=== PATIENT | male | born 1970 | race Caucasian/White ===

== ENCOUNTER 2024-11-14 16:48 | Emergency (ER) | payer OTHER ==
[~2024-11-14] VITALS: Ht 190.5 cm; Wt 127.0 kg
[2024-11-14] MEDS ORDERED: TIZANIDINE HCL2 MG PO (17:01)
[2024-11-14] MEDS ORDERED: TRAMADOL HYDROC50 M1 PO (17:01)
[2024-11-14] MEDS ORDERED: IBUPROFEN600 MG PO (17:02)
[2024-11-14 17:07] VITALS: BP 177/104
[2024-11-14] MEDS ORDERED: KETOROLAC TROMETHAMINE 30 MG/ML SDV IM ONE (17:15)
[2024-11-14 17:16] VITALS: BP 169/98
[2024-11-14] MEDS ORDERED: LIDOCAINE21 MT ×2 (17:21→18:06)
[2024-11-14] MEDS ORDERED: AMOX/K CLAV875 M1 PO ×2 (17:21→18:06)
[2024-11-14] MEDS ORDERED: LORTAB 5/3255 MG PO ×2 (17:21→18:06)
[2024-11-14 17:26] VITALS: BP 177/104
== END 2024-11-14 17:28 | disposition home or self-care (01) | DRG 159 ==
LOC: ED 16:48
DX: K04.7 Periapical abscess without sinus (principal); K02.9 Dental caries, unspecified; S02.5XXA Fracture of tooth (traumatic), initial encounter for closed fracture; X58.XXXA Exposure to other specified factors, initial encounter

== ENCOUNTER 2024-12-03 09:40 | Emergency (ER) | payer OTHER ==
[~2024-12-03] VITALS: Ht 190.5 cm; Wt 122.0 kg
[~2024-12-03 09:40] MED LIST: AMOX/K CLAV875 M1 PO; IBUPROFEN600 MG PO; LIDOCAINE21 MT; LORTAB 5/3255 MG PO; TIZANIDINE HCL2 MG PO; TRAMADOL HYDROC50 M1 PO
[2024-12-03 10:00] VITALS: BP 115/71
[2024-12-03 10:17] LABS: BASO% 0.3 % (0-3); EOS% 0.2 % (0-8); HEMATOCRIT 45.9 % (39.0-50.0); HEMOGLOBIN 15.8 g/dl (14.0-18.0); IMMATURE GRANULOCYTES 0.3 % (0.0-5.0); LYMPH% 8.9 % (15-41); MEAN CELL VOLUME 85.5 fL CALC (80.0-100.0); MEAN CORPUSCULAR HGB 29.4 pG CALC (26.0-32.0); MEAN CORPUSCULAR HGB CONC 34.4 g/dL CAL (32.0-36.0); MONO% 10.8 % (2-13); NEUT# 15.07 thou/uL (1.82-7.42); NEUT% 79.5 % (42-76); RED BLOOD COUNT 5.37 mill/uL (4.70-6.10); RED CELL DISTRI WIDTH 11.8 % (11.5-15.5)
[2024-12-03] MEDS ORDERED: PIPERACILLIN Sodium-Tazobactam 3.375 GM in SODIUM CHLORIDE 0.9% 100 ML IV ONE (10:30)
[2024-12-03 10:32] LABS: ALBUMIN 3.9 g/dL (3.2-5.0); ALKALINE PHOSPHATASE 102 u/l (38-126); ANION GAP 18 (6-22 (CALC)); BILIRUBIN, TOTAL 2.1 mg/dL (0.2-1.3); BUN 14 mg/dL (9-20); BUN/CREATININE RATIO 16 (12-20 (CALC)); CARBON DIOXIDE 20 mmol/l (22-30); CHLORIDE 102 mmol/l (95-108); CREATININE 0.8 mg/dL (0.7-1.3); ESTIMATED GFR 106 ML/MIN (>=90 (CALC)); LIPASE 161 u/l (23-300); POTASSIUM 3.9 mmol/l (3.5-5.1); SGOT/AST 41 u/l (17-59); SODIUM 135 mmol/l (137-146); TOTAL PROTEIN 6.8 g/dL (6.3-8.2)
[2024-12-03 10:33] LABS: URINE BLOOD DIPSTICK Negative (NEGATIVE); URINE GLUCOSE - DIPSTICK Negative (NEGATIVE); URINE KETONE 15 mg/dL (NEGATIVE); URINE LEUK ESTERASE Negative (NEGATIVE); URINE NITRITE - DIPSTICK Negative (Negative); URINE PH 5.5 (4.5-8.0); URINE PROTEIN - DIPSTICK 100 mg/dL (NEG-TRACE); URINE SPECIFIC GRAVITY 1.025
[2024-12-03 10:38] LABS: URINE COLOR Dark yellow
[2024-12-03 10:40] LABS: URINE MUCUS MODERATE hpf (NONE-FEW); URINE RBC 0-2 RBC/hpf (0-5); URINE WBC 0-2 WBC/hpf (0-5)
[2024-12-03 10:45] LABS: URINE HYALINE CAST FEW lpf (NONE-RARE)
[2024-12-03 10:50] VITALS: BP 136/81
[2024-12-03 11:01] VITALS: BP 135/84
[2024-12-03 14:23] VITALS: BP 135/84
== END 2024-12-03 14:24 | disposition left against medical advice (07) | DRG 392 ==
LOC: ED 09:40
PROVIDERS: Family Medicine
DX: K57.20 Diverticulitis of large intestine with perforation and abscess without bleeding (principal); Z20.822 Contact with and (suspected) exposure to COVID-19; Z53.29 Procedure and treatment not carried out because of patient's decision for other reasons
CPT/HCPCS: J2543; Q9967